=== PATIENT | female | born 1975 | race Caucasian/White ===

== ENCOUNTER → 2018-05-02 | Outpatient (CLI) | payer BC ==
[~2018-05-02] MED LIST: PROTONIX40 M1; TRINATE TABLET1 TAB; VITAMIN D3 COM1 EACH; ZOLOFT100 MG
== END ==
LOC: M.ULTRA 03-05 10:30 → M.RAD 03-05 10:30
DX: M54.2 Cervicalgia (principal); R53.83 Other fatigue; G44.52 New daily persistent headache (NDPH); R11.2 Nausea with vomiting, unspecified; N92.6 Irregular menstruation, unspecified; N94.6 Dysmenorrhea, unspecified; R10.2 Pelvic and perineal pain; Z91.012 Allergy to eggs